=== PATIENT | male | born 1975 | race African-American/Black ===

== ENCOUNTER 2022-03-02 08:53 | Inpatient (IN) | payer BC, OTHER ==
[~2022-03-02] VITALS: Ht 180.3 cm; Wt 86.2 kg
[2022-03-02] MEDS ORDERED: FAMOTIDINE. 20 MG/2 ML VIAL IV ONE ×2 (09:33→09:45)
[2022-03-02] MEDS ORDERED: IOHEXOL 300MG/ML 100 ML INFUS..BTL ONE (09:47)
[2022-03-02] MEDS ORDERED: IV NORMAL SALINE 250 ML IV ONE (09:47)
[2022-03-02] MEDS ORDERED: SWABABLE VALVE TRANSFER SET EA MC ONE (09:47)
--- NOTE | 2022-03-02 09:55 | NUR ---
Placed patient on a monitor. C/O mid abdominal pain. IV placed.
[2022-03-02 09:56] LABS: HEMATOCRIT 43.7 % (36.7-47.1); MEAN CORPUSCULAR HEMOGLOBIN 29.6 uug (23.8-33.4); MEAN CORPUSCULAR VOLUME 86.8 fL (73.0-96.2); PLATELET COUNT (AUTO) 219 K/uL (152-348)
[2022-03-02 10:00] LABS: CREATININE 1.4 mg/dL (0.6-1.3)
[2022-03-02 10:06] LABS: BILIRUBIN,TOTAL 0.9 mg/dL (0.2-1.0); TOTAL PROTEIN, SERUM 7.5 g/dL (6.4-8.2)
--- NOTE | 2022-03-02 10:22 | NUR ---
Patient states he does not want pain medicine at this time so he can monitor the pain level and will tell the doctor when he feels he needs the pain med.
[2022-03-02] MEDS ORDERED: IV NORMAL SALINE 500 ML BAG IV ONE ×2 (10:30→11:45)
[2022-03-02] MEDS ORDERED: METRONIDAZOLE 500 MG/NS 100 ML PIGGYBACK IV ONE (11:45)
[2022-03-02] MEDS ORDERED: CEFTRIAXONE 1 G in IV DEXTROSE 5% 50 ML IV ONE (11:45)
[2022-03-02] MEDS ORDERED: CEFTRIAXONE /D5W 50ML IVPB **ER PYXIS IV ONE (12:02)
[2022-03-02] MEDS ORDERED: METRONIDAZOLE 500 MG/NS 100ML 100 ML IV ONE (12:02)
--- NOTE | 2022-03-02 12:22 | NUR ---
Patient aware of pending admission to hospital. He is awake and alert with no new complaints. He has been NPO per MD since admission to ER.
--- NOTE | 2022-03-02 13:37 | NUR ---
Report given to Francine PUGA
[2022-03-02] MEDS ORDERED: ZOLPIDEM 5 MG TABLET PO PRN (13:45)
[2022-03-02] MEDS ORDERED: IV NS 1000 ML 1,000 ML IV PRN (13:45)
[2022-03-02] MEDS ORDERED: ONDANSETRON 4 MG/2 ML VIAL IV PRN (13:45)
[2022-03-02] MEDS ORDERED: ACETAMINOPHEN 325 MG TABLET PO PRN (13:45)
[2022-03-02] MEDS ORDERED: MAGNESIUM HYDROXIDE 30 ML LIQUID UDC PO PRN (13:45)
[2022-03-02] MEDS ORDERED: MORPHINE SULFATE 2 MG/1 ML DISP.SYRIN IV PRN (13:45)
[2022-03-02] MEDS ORDERED: CEFAZOLIN 1 G VIAL ONE ×2 (14:10)
[2022-03-02] MEDS ORDERED: SUCCINYLCHOLINE CHLORIDE 200 MG/10 ML VIAL ONE (14:10)
[2022-03-02] MEDS ORDERED: PROPOFOL 200 MG/20 ML BOTTLE ONE ×3 (14:10)
[2022-03-02] MEDS ORDERED: LIDOCAINE-MPF 2% 5 ML VIAL ONE (14:10)
[2022-03-02] MEDS ORDERED: EPHEDRINE SULFATE 50 MG/ML AMPUL ONE (14:10)
[2022-03-02] MEDS ORDERED: NEOSTIGMINE METHYLSULFATE 10 MG/10 ML VIAL ONE (14:10)
[2022-03-02] MEDS ORDERED: ONDANSETRON 4 MG/2 ML VIAL ONE (14:10)
[2022-03-02] MEDS ORDERED: GLYCOPYRROLATE 0.2 MG/ML VIAL ONE ×2 (14:10)
[2022-03-02] MEDS ORDERED: DEXAMETHASONE SOD PHOSPHATE 4 MG INJ ONE (14:10)
[2022-03-02 14:19] VITALS: BP 115/72
[2022-03-02 20:00] VITALS: BP 109/79
[2022-03-02] MEDS: METRONIDAZOLE 500 MG/NS 100ML 500 MG in PREMIXED 1 EACH IV SCH (20:38)
[2022-03-03 04:00] VITALS: BP 138/78
[2022-03-03] MEDS: METRONIDAZOLE 500 MG/NS 100ML 500 MG in PREMIXED 1 EACH IV SCH ×2 (04:12→14:23)
[2022-03-03 07:33] LABS: HEMATOCRIT 39.4 % (36.7-47.1); MEAN CORPUSCULAR HEMOGLOBIN 29.5 uug (23.8-33.4); MEAN CORPUSCULAR VOLUME 87.2 fL (73.0-96.2); PLATELET COUNT (AUTO) 197 K/uL (152-348)
[2022-03-03 07:51] LABS: CREATININE 1.5 mg/dL (0.6-1.3); MAGNESIUM 1.6 mg/dL (1.8-2.4); PHOSPHOROUS 4.1 mg/dL (2.5-4.9); POTASSIUM 3.9 mmol/L (3.5-5.1)
[2022-03-03] MEDS ORDERED: PANTOPRAZOLE SODIUM 40 MG VIAL IV SCH (09:00)
[2022-03-03] MEDS ORDERED: MAGNESIUM SULFATE/D5W 100 ML IV SCH (10:00)
[2022-03-03] MEDS ORDERED: HYDR-3972 PO (10:40)
[2022-03-03] MEDS ORDERED: ONDA4TAB11 PO (10:40)
[2022-03-03 11:10] VITALS: BP 120/83
--- NOTE | 2022-03-03 11:17 | NUR ---
pt went to or via bed for surgery
[2022-03-03] MEDS ORDERED: MIDAZOLAM HCL 2 MG/2 ML VIAL ONE (11:19)
[2022-03-03] MEDS ORDERED: ROCURONIUM BROMIDE 50 MG/5 ML VIAL ONE (11:19)
[2022-03-03] MEDS ORDERED: HYDROMORPHONE 2 MG/1 ML DISP.SYRIN ONE (11:19)
[2022-03-03] MEDS ORDERED: BUPIVACAINE/EPI PF 0.25% 10 ML VIAL IJ ONE (11:26)
[2022-03-03] MEDS ORDERED: CEFTRIAXONE 2 G in IV DEXTROSE 5% 100 ML IV SCH (13:00)
[2022-03-03] MEDS ORDERED: ALBUTEROL SULFATE 2.5 MG/3 ML NEBU ONE (13:01)
--- NOTE | 2022-03-03 14:20 | NUR ---
pt received from recovery room via bed in stable condition .vs are stable
[2022-03-03 15:02] VITALS: BP 128/79
[2022-03-03 15:15] VITALS: BP 127/79
[2022-03-03] MEDS ORDERED: MORPHINE SULFATE 2 MG/1 ML DISP.SYRIN IV PRN (15:45)
[2022-03-03] MEDS ORDERED: HYDROCODONE/APAP 5-325MG TABLET PO PRN (15:45)
--- NOTE | 2022-03-03 17:48 | NUR ---
dc orders received noted and carried out,dc heplock per md orders.dc instruction and education given to the pt.pt said he will follow up with his dr in one week .pt left the facility via private car in stable condition
== END 2022-03-03 16:45 | disposition home or self-care (01) | DRG 343 ==
LOC: ER 08:53 → MEDSURG3 13:25
PROVIDERS: ADMIT Nurse Practitioner Family; ATTEND Nurse Practitioner Family
PROC: 0DTJ4ZZ Resection of Appendix, Percutaneous Endoscopic Approach (ICD-10-PCS; principal; 2022-03-03)
DX: K35.80 Unspecified acute appendicitis (principal); R74.8 Abnormal levels of other serum enzymes
CPT/HCPCS: 36415; 83690; 83735; 84100; 84484; 85025; 85610; 86850; 86900; 86901; 87040; 93005; 94664; A4663; C9113; G0378; J0330; J0690; J0696; J1100; J1170; J2250; J2405; J3475; J3490; J7040; Q9967